=== PATIENT | female | born 1985 ===

== ENCOUNTER 2018-09-24 02:58 | Observation (INO) ==
[2018-09-24 03:24] LABS: Bilirubin,Urine Negative (Negative); Blood,Urine Small (Negative); Clarity,Urine Cloudy (Clear); Color,Urine Dark Yellow (Yellow); Glucose,Urine (UA) Normal (Normal); Ketones,Urine Negative (Negative); Leukocyte Esterase,Urine Moderate (Negative); Nitrite,Urine Negative (Negative); PH,Urine 6.5 pH Units (5.0-8.0); Protein,Urine 30 mg/dL (Neg-Trace); Specific Gravity,Urine 1.009 (1.010-1.025); Urobilinogen,Urine Normal (Normal)
[2018-09-24 03:27] LABS: Bacteria,Urine Many per hpf (None-Few); Hyaline Casts,Urine Few per lpf (None-Few); Squamous Epithelial Cell,Urine Many per lpf (None-Few); WBC,Urine 15-30 per hpf (0-3)
[2018-09-24 03:41] LABS: Amphetamine Screen,Urine Negative ng/mL (Cutoff=1000); Barbiturate Screen,Urine Negative ng/mL (Cutoff=200); Benzodiazepines Screen,Urine Negative ng/mL (Cutoff=200); Cannabinoid Screen,Urine Negative ng/mL (Cutoff = 50); Cocaine Screen,Urine Negative ng/mL (Cutoff= 300); Opiate Screen,Urine Negative ng/mL (Cutoff=300); Phencyclidine Screen,Urine Negative ng/mL (Cutoff=25)
--- NOTE | 2018-09-26 17:41 | OB/GYN Progress Note ---
Date of Encounter: 09/24/18 Time of Encounter: 05:00 - Assessment and Plan (1) Uterine contractions during Status: Acute Contractions noted every 3-4 minutes while patient on monitor. No cervical change during stay. To follow-up as scheduled for routine care (2) 36 weeks gestation of Status: Acute Admitted to observation for labor evaluation Contractions every 3-4 minutes, no cervical change while here. Discharge patient home, to follow-up as scheduled for routine care (3) NST (non-stress test) reactive on surveillance Status: Acute FHR 145 bpm, +15 x 15 accelerations, no decelerations. Subjective - Subjective Principal diagnosis: R/O labor Interval history: Kari is 36 weeks who comes in this morning complaining of contractions every 5-10 minutes. She reports positive movement, denies bleeding and fluid leakage. Antepartum ROS: movement normal, contractions, no loss of fluid, no vaginal bleeding Objective - Exam FHR: category 1 FHR comments: FHR 145 bpm, +15 x 15 accelerations, no decelerations. Contractions every 3-4 minutes on toco Cervical dilation: 1.5 per RN exam - Labs Labs: Abnormal lab results Urine Clarity Cloudy (Clear) A 09/24/18 03:15 Ur Specific [place] 1.009 (1.010-1.025) L 09/24/18 03:15 Urine Protein 30 mg/dL (Neg-Trace) H 09/24/18 03:15 Urine Blood Small (Negative) H 09/24/18 03:15 Ur Leukocyte Esterase Moderate (Negative) H 09/24/18 03:15 Urine Microscopic RBC 5-15 per hpf (0-3) H 09/24/18 03:15 Urine Microscopic WBC 15-30 per hpf (0-3) H 09/24/18 03:15 Ur Squamous Epith Cells Many per lpf (None-Few) H 09/24/18 03:15 Urine Bacteria Many per hpf (None-Few) H 09/24/18 03:15 Ur Culture Indicated? NO. (NO) A 09/24/18 03:15
== END 2018-09-24 05:32 | disposition home or self-care (01) ==
LOC: 1NENULAB
PROVIDERS: ADMIT Registered Nurse; ATTEND Registered Nurse

== ENCOUNTER 2018-09-24 13:17 | Observation (INO) ==
[2018-09-24 13:48] VITALS: BP 109/66
[2018-09-24 14:32] LABS: Amphetamine Screen,Urine Negative ng/mL (Cutoff=1000); Barbiturate Screen,Urine Negative ng/mL (Cutoff=200); Benzodiazepines Screen,Urine Negative ng/mL (Cutoff=200); Cannabinoid Screen,Urine Negative ng/mL (Cutoff = 50); Cocaine Screen,Urine Negative ng/mL (Cutoff= 300); Opiate Screen,Urine Negative ng/mL (Cutoff=300); Phencyclidine Screen,Urine Negative ng/mL (Cutoff=25)
--- NOTE | 2018-09-24 15:05 | Discharge Summary ---
Date of Encounter: 09/24/18 Time of Encounter: 15:05 - Discharge Diagnosis (1) 36 weeks gestation of Priority: Primary Status: Acute Comments: admitted for labor evaluation (2) NST (non-stress test) reactive on surveillance Priority: Secondary Status: Acute Comments: FHR 135 bpm moderate variability +15x15 accels no decels noted. Cat. 1 tracing - Discharge Medications Home Medications: Gummies 1 tab PO DAILY 04/08/18 [History] Ferrous Sulfate 1 tab PO BID 09/24/18 [History] metFORMIN 500 mg PO DAILY 09/24/18 [History] Allergies/Adverse Reactions: Allergy/AdvReac Type Severity Reaction Status Date / Time Penicillins [PCN] AdvReac See Verified 09/24/18 03:16 Comments Data Procedures and tests throughout hospitalization: Laboratory Tests 09/24/18 13:45 Urine Opiates Screen Negative Ur Barbiturates Screen Negative Ur Phencyclidine Scrn Negative Ur Amphetamines Screen Negative U Benzodiazepines Scrn Negative Urine Cocaine Screen Negative U Marijuana (THC) Screen Negative Ur Drug Screen Interp See Below Labs on day of discharge: Labs from last 24 hours 09/24/18 13:45 Urine Opiates Screen Negative Ur Barbiturates Screen Negative Ur Phencyclidine Scrn Negative Ur Amphetamines Screen Negative U Benzodiazepines Scrn Negative Urine Cocaine Screen Negative U Marijuana (THC) Screen Negative Ur Drug Screen Interp See Below Date of admission: 09/24/18 13:17 Discharging clinician: Stormy Zambrano Anticipated date of discharge: 09/24/18 - Patient Status Disposition: Home, Self-Care Condition: Good Functional capacity at discharge: independent ambulation - Discharge Instructions Follow Up With: Adela Reyes DO [Partnered Physician] - - Diet and Activity Activity: resume usual activities as tolerated Diet: regular diet Hospital Course [employer] Hospital course: Patient is a 32 y/o at 36w0d presents to labor and delivery with complaints of contractions last night and clear discharge today. Patient was in labor and delivery last night for a labor evaluation and checked several times without cervical change. Patient denies any vaginal bleeding and reports + FM. Patient denies any urinary symptoms, headache or visual disturbances. Time Attestation: Total time spent providing and/or coordinating discharge services: Time Spent: Less than 30 minutes Exam - Constitutional Vitals: Temp Pulse Resp BP 97.3 F L 77 14 109/66 09/24/18 13:45 09/24/18 13:45 09/24/18 13:45 09/24/18 13:45 General appearance IM: A&O X 3, pleasant, answers questions appropriately - Other Additional findings: FHR 135 bpm moderate variability +15x15 accels no decels noted. Occasional contraction. Cat. 1 tracing Negative Nitrazine per RN No LOF noted during observation Perineum was dry SVE 1.5 cm per RN - VTE Reasons for not Prescribing Prophylaxis: Treatment not Indicated - Low risk for VTE
== END 2018-09-24 15:08 | disposition home or self-care (01) ==
LOC: 1NENULAB
PROVIDERS: ADMIT Student in an Organized Health Care Education/Training Program; ATTEND Student in an Organized Health Care Education/Training Program

== ENCOUNTER 2019-08-07 15:20 | Observation (INO) ==
[2019-08-07] MEDS ORDERED: FLU Vac QV 19-20 (6Month+)/PF 0.5 ML SYRINGE IM ONE (16:07)
[2019-08-07 16:42] LABS: Amphetamine Screen,Urine Negative ng/mL (Cutoff=1000); Barbiturate Screen,Urine Negative ng/mL (Cutoff=200); Benzodiazepines Screen,Urine Negative ng/mL (Cutoff=200); Cannabinoid Screen,Urine Negative ng/mL (Cutoff = 50); Cocaine Screen,Urine Negative ng/mL (Cutoff= 300); Opiate Screen,Urine Negative ng/mL (Cutoff=300); Phencyclidine Screen,Urine Negative ng/mL (Cutoff=25)
[2019-08-07] MEDS ORDERED: Morphine Sulfate 2 MG/ML SYRINGE IVP ONE (18:19)
[2019-08-07] MEDS ORDERED: Morphine Sulfate 2 MG/ML SYRINGE SQ ONE (18:19)
== END 2019-08-07 23:45 | disposition home or self-care (01) ==
LOC: 1NENULAB
PROVIDERS: ADMIT Advanced Practice Midwife; ATTEND Advanced Practice Midwife

== ENCOUNTER 2019-08-10 17:23 | Observation (INO) ==
[2019-08-10 19:09] LABS: Bilirubin,Urine Negative (Negative); Blood,Urine Negative (Negative); Clarity,Urine Cloudy (Clear); Color,Urine Yellow (Yellow); Glucose,Urine (UA) Normal (Normal); Ketones,Urine Negative (Negative); Leukocyte Esterase,Urine Small (Negative); Nitrite,Urine Negative (Negative); PH,Urine 6.5 pH Units (5.0-8.0); Protein,Urine 30 mg/dL (Neg-Trace); Specific Gravity,Urine 1.022 (1.010-1.025); Urobilinogen,Urine Normal (Normal)
[2019-08-10 19:12] LABS: Hyaline Casts,Urine None Seen per lpf (None-Few); WBC,Urine 15-30 per hpf (0-3)
[2019-08-10 19:22] LABS: Amphetamine Screen,Urine Negative ng/mL (Cutoff=1000); Barbiturate Screen,Urine Negative ng/mL (Cutoff=200); Benzodiazepines Screen,Urine Negative ng/mL (Cutoff=200); Cannabinoid Screen,Urine Negative ng/mL (Cutoff = 50); Cocaine Screen,Urine Negative ng/mL (Cutoff= 300); Opiate Screen,Urine Negative ng/mL (Cutoff=300); Phencyclidine Screen,Urine Negative ng/mL (Cutoff=25)
[2019-08-10 19:31] LABS: Bacteria,Urine Many per hpf (None-Few); Mucus,Urine Few (Few); Squamous Epithelial Cell,Urine Moderate per lpf (None-Few)
== END 2019-08-10 19:40 | disposition home or self-care (01) ==
LOC: 1NENULAB
PROVIDERS: ADMIT Advanced Practice Midwife; ATTEND Advanced Practice Midwife

== ENCOUNTER 2019-08-13 11:34 | Inpatient (IN) ==
[2019-08-13] MEDS ORDERED: Ondansetron 4 MG/2 ML VIAL IVP PRN (11:38)
[2019-08-13] MEDS ORDERED: Metoclopramide 10 MG/2 ML VIAL IVP PRN (11:38)
[2019-08-13] MEDS ORDERED: Famotidine 20 MG/2 ML VIAL IVP PRN (11:38)
[2019-08-13] MEDS ORDERED: *HR* Nalbuphine 10 MG/ML AMPUL IVP PRN (11:38)
[2019-08-13] MEDS ORDERED: Lidocaine 1% 20 ML MDV INFILT PRN (11:38)
[2019-08-13] MEDS ORDERED: Naloxone 0.4 MG/ML INJ IVP PRN (11:38)
[2019-08-13] MEDS ORDERED: Ringers Solution, Lactated 1,000 ML IVC SCH (11:45)
[2019-08-13] MEDS ORDERED: FLU Vac QV 19-20 (6Month+)/PF 0.5 ML SYRINGE IM ONE (13:05)
[2019-08-13 13:37] LABS: Basophils % 0.2 %; Eosinophils % 0.6 %; Hematocrit 29.7 % (35.3-44.9); Hemoglobin 9.9 g/dL (11.5-15.4); Immature Granulocytes % 0.6 % (0-4); Lymphocytes % 18.6 %; Mean Corpuscular HGB Conc 33.3 g/dL (31.6-35.5); Mean Corpuscular Hemoglobin 32.8 pg (28.0-33.3); Mean Corpuscular Volume 98.3 fL (83.0-100.0); Mean Platelet Volume 11.3 fL (9.4-12.4); Monocytes # 0.3 K/mcL (0.0-1.3); Monocytes % 5.2 %; Neutrophils # 4.1 K/mcL (1.6-8.9); Platelet Count 150 K/mcL (140-400); Red Blood Count 3.02 M/mcL (3.82-4.97); Red Cell Distribution Width 15.1 % (11.5-14.5); Segmented Neutrophils % 74.8 %; White Blood Count 5.4 K/mcL (4.3-11.1)
[2019-08-13 16:08] LABS: Amphetamine Screen,Urine Negative ng/mL (Cutoff=1000); Barbiturate Screen,Urine Negative ng/mL (Cutoff=200); Benzodiazepines Screen,Urine Negative ng/mL (Cutoff=200); Cannabinoid Screen,Urine Negative ng/mL (Cutoff = 50); Cocaine Screen,Urine Negative ng/mL (Cutoff= 300); Opiate Screen,Urine Negative ng/mL (Cutoff=300); Phencyclidine Screen,Urine Negative ng/mL (Cutoff=25)
== END 2019-08-13 19:08 | disposition home or self-care (01) | DRG 566 ==
LOC: 1NENULAB → OBSVTOIN 11:34
PROVIDERS: ADMIT Advanced Practice Midwife; ATTEND Advanced Practice Midwife

== ENCOUNTER 2019-08-19 05:25 | Inpatient (IN) ==
[2019-08-19] MEDS ORDERED: Ringers Solution, Lactated 1,000 ML ONE ×3 (05:53→08:57)
[2019-08-19] MEDS ORDERED: Famotidine 20 MG/2 ML VIAL IVP ONE (06:36)
[2019-08-19] MEDS ORDERED: Oxytocin 20 units/ LR 1000 mL 20 UNIT/1,000 ML BAG IVC ONE (06:36)
[2019-08-19] MEDS ORDERED: Ringers Solution, Lactated 1,000 ML IVC ONE (06:36)
[2019-08-19] MEDS ORDERED: Metoclopramide 10 MG/2 ML VIAL IVP ONE (06:36)
[2019-08-19] MEDS ORDERED: Gentamicin 380 MG in 0.9 % Sodium Chloride 100 ML IVPB ONE (06:42)
[2019-08-19] MEDS ORDERED: Clindamycin 900 MG/50 ML 900 MG/50 ML IV.SOLN IVPB ONE (06:42)
[2019-08-19] MEDS ORDERED: Ringers Solution, Lactated 1,000 ML IVC SCH (06:45)
[2019-08-19] MEDS ORDERED: Oxytocin 20 units/ LR 1000 mL 20 UNIT/1,000 ML BAG IVC SCH ×3 (06:45→11:39)
[2019-08-19 07:18] LABS: Basophils % 0.2 %; Eosinophils % 0.6 %; Immature Granulocytes % 0.8 % (0-4); Monocytes % 5.6 %
[2019-08-19 07:22] LABS: Protein/Creatinine Ratio,Urine 0.39 mg/mg (0.00-0.20)
[2019-08-19 07:29] LABS: Hematocrit 28.3 % (35.3-44.9); Hemoglobin 9.3 g/dL (11.5-15.4); Lymphocytes # 1.1 K/mcL (0.6-4.6); Lymphocytes % 21.3 %; Mean Corpuscular HGB Conc 32.9 g/dL (31.6-35.5); Mean Corpuscular Hemoglobin 32.9 pg (28.0-33.3); Mean Platelet Volume 11.8 fL (9.4-12.4); Monocytes # 0.3 K/mcL (0.0-1.3); Neutrophils # 3.8 K/mcL (1.6-8.9); Platelet Count 151 K/mcL (140-400); Red Blood Count 2.83 M/mcL (3.82-4.97); Red Cell Distribution Width 15.2 % (11.5-14.5); Segmented Neutrophils % 71.5 %; White Blood Count 5.3 K/mcL (4.3-11.1)
[2019-08-19 07:31] LABS: Alanine Aminotransferase 7 Units/L (7-52); Aspartate Amino Transferase 10 Units/L (13-39); BUN/Creatinine Ratio 21 (6-26); Blood Urea Nitrogen 12 mg/dL (6-20); Glucose 90 mg/dL (70-105); Lactate Dehydrogenase 164 Units/L (140-271); Uric Acid 6.4 mg/dL (2.3-7.6); eGFR For African Americans > 60 (> 60); eGFR For Non-African Americans > 60 (> 60)
[2019-08-19] MEDS ORDERED: *HR* Morphine Sulfate/PF 10 MG/10 ML AMPUL ONE (07:42)
[2019-08-19] MEDS ORDERED: *HR* Oxytocin 10 UNIT/ML VIAL IM ONE (08:16)
[2019-08-19] MEDS ORDERED: Ondansetron 4 MG/2 ML VIAL IVP PRN ×2 (09:00→11:39)
[2019-08-19] MEDS ORDERED: *HR* HYDROmorphone (PF) 1 MG/ML SYRINGE IVP PRN (09:02)
[2019-08-19 09:24] LABS: Amphetamine Screen,Urine Negative ng/mL (Cutoff=1000); Barbiturate Screen,Urine Negative ng/mL (Cutoff=200); Benzodiazepines Screen,Urine Negative ng/mL (Cutoff=200); Cannabinoid Screen,Urine Negative ng/mL (Cutoff = 50); Cocaine Screen,Urine Negative ng/mL (Cutoff= 300); Opiate Screen,Urine Negative ng/mL (Cutoff=300); Phencyclidine Screen,Urine Negative ng/mL (Cutoff=25)
[2019-08-19] MEDS ORDERED: Acetaminophen 325 MG TABLET PO PRN (11:39)
[2019-08-19] MEDS ORDERED: *HR* Dextrose 50 % in Water (Syg) 50 ML SYRINGE IVP PRN (11:39)
[2019-08-19] MEDS ORDERED: Sennosides 8.6 MG TABLET PO PRN (11:39)
[2019-08-19] MEDS ORDERED: *HR* OxyCODONE Immed Rel 5 MG TABLET PO PRN (11:39)
[2019-08-19] MEDS ORDERED: Simethicone 80 MG TAB.CHEW PO PRN (11:39)
[2019-08-19] MEDS ORDERED: D5% in Water 1,000 ML IVC PRN (11:39)
[2019-08-19] MEDS ORDERED: Dextrose Gel 15 GM/37.5 ML TUBE PO PRN ×2 (11:39)
[2019-08-19] MEDS ORDERED: Metoclopramide 10 MG/2 ML VIAL IVP PRN (11:39)
[2019-08-19] MEDS: Azithromycin 250 MG TABLET PO SCH (12:28)
[2019-08-19] MEDS: Insulin LISPRO 300 UNITS/3 ML VIAL SQ SCH (16:32)
[2019-08-19] MEDS: Ibuprofen 600 MG TABLET PO PRN (23:32)
[2019-08-19] MEDS: metroNIDAZOLE 500 MG TABLET PO SCH (23:32)
[2019-08-20] MEDS: Insulin LISPRO 300 UNITS/3 ML VIAL SQ SCH ×2 (07:49→16:42)
[2019-08-20] MEDS: Prenatal Vit/FA 1 EACH TABLET PO SCH (07:59)
[2019-08-20] MEDS: metroNIDAZOLE 500 MG TABLET PO SCH ×2 (08:00→20:44)
[2019-08-20] MEDS: *HR* Enoxaparin 40 MG/0.4 ML SYRINGE SQ SCH (08:01)
[2019-08-20] MEDS: *HR* OxyCODONE/APAP 5/325 TABLET PO PRN ×3 (08:32→21:32)
[2019-08-20] MEDS: Ibuprofen 600 MG TABLET PO PRN ×2 (09:46→20:44)
[2019-08-20 10:47] LABS: Basophils % 0.2 %; Eosinophils % 0.6 %; Hematocrit 24.4 % (35.3-44.9); Immature Granulocytes % 0.5 % (0-4); Lymphocytes # 0.7 K/mcL (0.6-4.6); Lymphocytes % 10.4 %; Mean Corpuscular HGB Conc 32.8 g/dL (31.6-35.5); Mean Corpuscular Hemoglobin 33.1 pg (28.0-33.3); Mean Corpuscular Volume 100.8 fL (83.0-100.0); Mean Platelet Volume 11.2 fL (9.4-12.4); Monocytes # 0.3 K/mcL (0.0-1.3); Monocytes % 4.4 %; Neutrophils # 5.3 K/mcL (1.6-8.9); Platelet Count 130 K/mcL (140-400); Red Blood Count 2.42 M/mcL (3.82-4.97); Red Cell Distribution Width 15.8 % (11.5-14.5); Segmented Neutrophils % 83.9 %; White Blood Count 6.3 K/mcL (4.3-11.1)
[2019-08-20] MEDS: Azithromycin 250 MG TABLET PO SCH (13:24)
[2019-08-21] MEDS: *HR* OxyCODONE/APAP 5/325 TABLET PO PRN ×3 (02:13→12:45)
[2019-08-21] MEDS: *HR* Enoxaparin 40 MG/0.4 ML SYRINGE SQ SCH (05:34)
[2019-08-21] MEDS: Prenatal Vit/FA 1 EACH TABLET PO SCH (07:51)
[2019-08-21] MEDS: metroNIDAZOLE 500 MG TABLET PO SCH (07:51)
[2019-08-21] MEDS: Insulin LISPRO 300 UNITS/3 ML VIAL SQ SCH ×2 (08:02→12:46)
[2019-08-21 09:24] VITALS: BP 130/81
[2019-08-21] MEDS: Ibuprofen 600 MG TABLET PO PRN (10:56)
[2019-08-21] MEDS: Azithromycin 250 MG TABLET PO SCH (12:45)
== END 2019-08-21 16:05 | disposition home or self-care (01) | DRG 540 ==
LOC: SAMDAY 05:25 → 1NENULAB 05:26 → 1NENUOBS 11:26
PROVIDERS: ADMIT Obstetrics & Gynecology; ATTEND Obstetrics & Gynecology